=== PATIENT | female | born 1955 | race Caucasian/White ===

== ENCOUNTER 2016-04-26 17:55 | Emergency (ER) | payer MEDICAID ==
[~2016-04-26] VITALS: Ht 147.3 cm; Wt 92.5 kg
[2016-04-26 18:11] VITALS: BP 124/80
[2016-04-26] MEDS ORDERED: ACETAMINOPHEN EXTRA STRENGTH 500 MG TAB PO ONE (18:20)
--- NOTE | 2016-04-26 18:20 | NUR ---
PATIENT TO ER BED 8.
[2016-04-26] MEDS ORDERED: ACETAMINOPHEN EXTRA STRENGTH 500 MG TAB ONE (18:21)
[2016-04-26] MEDS ORDERED: NACL 0.9% 1,000 ML IV ONE (18:25)
--- NOTE | 2016-04-26 18:29 | NUR ---
Patient being evaluated by physician at bedside.
--- NOTE | 2016-04-26 18:30 | NUR ---
PATIENT BIB FAMILY PRESENTS TO ED WITH C/O FEVER X1 WEEK WITH COUGH; DENIES N/D; SKIN IS PINK/WARM/DRY; AAOX4 WITH EVEN AND STEADY GAIT; LUNGS CLEAR BL; HR EVEN AND REGULAR; PT DENIES ANY FEVER, CP, SOB, OR COUGH AT THIS TIME; PATIENT STATES PAIN OF 0/10 AT THIS TIME; VSS; PATIENT POSITIONED FOR COMFORT; HOB ELEVATED; BEDRAILS UP X2; BED DOWN. ER MD MADE AWARE OF PT STATUS.
[2016-04-26] MEDS ORDERED: cefTRIAXone 2,000 MG in DEXTROSE 5% 100 ML IV ONE (18:35)
[2016-04-26] MEDS ORDERED: cefTRIAXone 2,000 MG VIAL ONE (18:45)
--- NOTE | 2016-04-26 19:10 | NUR ---
REPORT RECEIVED FROM FERNY SANTIAGO.
--- NOTE | 2016-04-26 19:25 | NUR ---
REPORT GIVEN TO FERNY ROSENBERG
--- NOTE | 2016-04-26 19:58 | NUR ---
CONCENT SIGNED, PT TRANSFFERED TO CT VIA WHEELCHAIR.
--- NOTE | 2016-04-26 20:07 | NUR ---
PT IS TRANSFFERED BACK FROM CT. CONTINUE TO MONITOR
--- NOTE | 2016-04-26 21:00 | NUR ---
Patient discharged with v/s stable. Written and verbal after care instructions given and explained. Patient alert, oriented and verbalized understanding of instructions. Ambulatory with steady gait. All questions addressed prior to discharge. ID band removed. IV REMOVED. Patient advised to follow up with PMD. Rx of MOTRIN AND CIPRO given. Patient educated on indication of medication including possible reaction and side effects. Opportunity to ask questions provided and answered.
[2016-04-26 21:10] VITALS: BP 106/56
== END 2016-04-26 21:00 | disposition home or self-care (01) ==
LOC: MED 17:55
DX: R50.9 Fever, unspecified (principal); R05 Cough; R11.2 Nausea with vomiting, unspecified; R30.0 Dysuria
CPT/HCPCS: 36415; 71010; 71275; 80053; 81002; 82553; 83605; 83880; 84484; 85025; 85379; 85610; 85730; 87040; 87077; 87186; 93005; 96365; 99285; J0696; J7030; Q0092; Q9967

== ENCOUNTER 2017-03-29 20:45 | Inpatient (IN) | payer SELFPAY ==
[~2017-03-29] VITALS: Ht 152.4 cm; Wt 93.4 kg
[2017-03-29 20:59] VITALS: BP 152/102
[2017-03-29] MEDS ORDERED: LISINOPRIL 10 MG TAB ONE (22:42)
[2017-03-29] MEDS: NACL 0.9% 1,000 ML IV SCH (23:27)
[2017-03-29] MEDS ORDERED: ACETAMINOPHEN 325 MG TAB PO PRN (23:30)
[2017-03-29] MEDS ORDERED: HYDROcodone/APAP 7.5/325 MG 1 TAB PO PRN (23:30)
[2017-03-29] MEDS ORDERED: DOCUSATE SODIUM 100 MG GELCAP PO PRN (23:30)
[2017-03-29] MEDS ORDERED: ONDANSETRON 4 MG/2 ML VIAL IM/IVP PRN (23:30)
[2017-03-29 23:39] LABS: CARBON DIOXIDE 29.3 mmol/L (21-32); CREATININE 0.8 mg/dL (0.6-1.3); POTASSIUM 3.3 mmol/L (3.5-5.1)
[2017-03-29 23:45] LABS: BASOPHILS # (AUTO) 0.5 K/uL (0.00-0.22); BASOPHILS % (AUTO) 4.9 % (0.0-2.0); EOSINOPHILS # (AUTO) 0.4 K/uL (0-0.4); EOSINOPHILS % (AUTO) 4.1 % (0.0-4.0); HEMATOCRIT 45.6 % (36-48); HEMOGLOBIN 15.5 g/dL (12.0-16.0); LYMPHOCYTES # (AUTO) 2.6 K/uL (2.5-16.5); MEAN CORPUSCULAR HEMOGLOBIN 31 pg (27-31); MEAN CORPUSCULAR HGB CONC 34 g/dL (33-37); MEAN CORPUSCULAR VOLUME 90 fL (80-94); MONOCYTES # (AUTO) 0.9 K/uL (0.8-1.0); MONOCYTES % (AUTO) 8.1 % (1.7-9.3); NEUTROPHILS # (AUTO) 6.5 K/uL (1.8-7.7); NEUTROPHILS % (AUTO) 58.9 % (42.2-75.2); PLATELET COUNT (AUTO) 313 K/uL (140-450); RED BLOOD CELL COUNT(AUTO) 5.07 MIL/uL (4.20-5.40); RED CELL DISTRIBUTION WIDTH 12.7 % (11.6-13.7); WHITE BLOOD COUNT (AUTO) 10.9 K/uL (4.8-10.8)
[2017-03-29 23:48] LABS: ALBUMIN 3.6 g/dL (3.4-5.0); TOTAL BILIRUBIN 0.2 mg/dL (0.0-1.0)
[2017-03-30] VITALS (7 sets, daily range): BP systolic 122–176; BP diastolic 82–101
[2017-03-30] MEDS: MORPHINE SULFATE 4 MG/ML SYR IVP PRN ×2 (00:24→09:32)
[2017-03-30 00:27] LABS: CHOL/HDL RATIO 3.4 (1-4.5); FREE T4 (FREE THYROXINE) 0.96 ng/dL (0.76-1.46); MAGNESIUM 1.8 mg/dL (1.8-2.4); PHOSPHORUS 3.6 mg/dL (2.5-4.9); THYROID STIMULATING HORMONE 5.93 uIU/mL (0.34-3.74)
[2017-03-30 01:23] LABS: BARBITURATE, URINE NEG. ng/ml (NEG <=200); BENZODIAZEPINE, URINE NEG. ng/mL (NEG <=200); CANNABINOID, URINE NEG. ng/mL (NEG <=50); COCAINE, URINE NEG. ng/mL (NEG <=300); OPIATE, URINE NEG. ng/mL (NEG <=2000); PHENCYCLIDINE SCREEN,URINE NEG. ng/mL (NEG <=25)
[2017-03-30] MEDS ORDERED: MECLIZINE 25 MG TAB PO PRN (01:35)
[2017-03-30] MEDS ORDERED: LABETALOL 100 MG/20 ML VIAL IV SCH (01:40)
[2017-03-30] MEDS ORDERED: NITROGLYCERIN 0.4 MG TAB SL PRN (01:45)
[2017-03-30] MEDS ORDERED: MORPHINE SULFATE 4 MG/ML SYR IVP PRN (01:45)
[2017-03-30] MEDS ORDERED: LABETALOL 100 MG/20 ML VIAL ONE (02:17)
[2017-03-30] MEDS ORDERED: POTASSIUM CHLORIDE 10 MEQ TABER PO SCH ×2 (02:20→10:10)
[2017-03-30 02:25] LABS: PROTHROMBIN TIME 9.9 secs (10.8-13.4)
[2017-03-30 02:49] LABS: APPEARANCE,URINE CLEAR (CLEAR); BILIRUBIN,URINE NEGATIVE (NEGATIVE); BLOOD, URINE 1+ (NEGATIVE); COLOR,URINE YELLOW (YELLOW); LEUKOCYTE ESTERASE ,URINE NEGATIVE (NEGATIVE); NITRITE, URINE NEGATIVE (NEGATIVE); UGLUCOSE NEGATIVE (NEGATIVE)
[2017-03-30] MEDS ORDERED: INFLUENZA VIRUS VACCINE QUAD 0.5 ML SYR IMVAC PRN (03:00)
[2017-03-30 03:20] LABS: RBC,URINE 0-5 (RARE) /HPF (0-5); WBC,URINE 0-5 (RARE) /HPF (0-5)
[2017-03-30 07:04] LABS: BASOPHILS # (AUTO) 0.4 K/uL (0.00-0.22); BASOPHILS % (AUTO) 3.6 % (0.0-2.0); EOSINOPHILS # (AUTO) 0.4 K/uL (0-0.4); EOSINOPHILS % (AUTO) 3.6 % (0.0-4.0); HEMATOCRIT 42.6 % (36-48); HEMOGLOBIN 14.5 g/dL (12.0-16.0); LYMPHOCYTES # (AUTO) 2.3 K/uL (2.5-16.5); LYMPHOCYTES % (AUTO) 22.4 % (20.5-51.1); MEAN CORPUSCULAR HEMOGLOBIN 31 pg (27-31); MEAN CORPUSCULAR HGB CONC 34 g/dL (33-37); MEAN CORPUSCULAR VOLUME 91 fL (80-94); MONOCYTES # (AUTO) 0.9 K/uL (0.8-1.0); MONOCYTES % (AUTO) 9.1 % (1.7-9.3); NEUTROPHILS # (AUTO) 6.4 K/uL (1.8-7.7); NEUTROPHILS % (AUTO) 61.3 % (42.2-75.2); PLATELET COUNT (AUTO) 305 K/uL (140-450); RED CELL DISTRIBUTION WIDTH 12.4 % (11.6-13.7); WHITE BLOOD COUNT (AUTO) 10.4 K/uL (4.8-10.8)
[2017-03-30 07:11] LABS: ANION GAP 12.2 (8-16); CARBON DIOXIDE 30.1 mmol/L (21-32); CREATININE 0.7 mg/dL (0.6-1.3); POTASSIUM 3.3 mmol/L (3.5-5.1)
[2017-03-30 07:14] LABS: MAGNESIUM 1.7 mg/dL (1.8-2.4); PHOSPHORUS 4.4 mg/dL (2.5-4.9)
[2017-03-30] MEDS ORDERED: LISINOPRIL 20 MG TAB PO SCH ×3 (09:00)
[2017-03-30] MEDS ORDERED: ASPIRIN 81 MG TAB.CHEW PO SCH (09:00)
[2017-03-30] MEDS ORDERED: METOPROLOL SUCCINATE 50 MG TABER PO SCH (09:00)
[2017-03-30] MEDS ORDERED: MAGNESIUM OXIDE 400 MG TAB PO SCH (10:10)
[2017-03-30] MEDS ORDERED: HYDROCHLOROTHIAZIDE 25 MG TAB PO SCH (11:15)
[2017-03-30] MEDS: LISINOPRIL 20 MG TAB PO SCH (20:24)
[2017-03-30] MEDS ORDERED: ATORVASTATIN 20 MG TAB PO SCH (21:00)
[2017-03-30] MEDS: NACL 0.9% 1,000 ML IV SCH (21:13)
[2017-03-31] VITALS: BP 128/75
[2017-03-31] MEDS: NACL 0.9% 1,000 ML IV SCH ×2 (00:24→08:01)
[2017-03-31 04:00] VITALS: BP 116/68
[2017-03-31 06:16] LABS: T4 (THYROXINE) 6.9 ug/dL (4.5-12.0)
[2017-03-31 06:54] LABS: BASOPHILS # (AUTO) 0.4 K/uL (0.00-0.22); BASOPHILS % (AUTO) 3.7 % (0.0-2.0); EOSINOPHILS # (AUTO) 0.3 K/uL (0-0.4); EOSINOPHILS % (AUTO) 3.1 % (0.0-4.0); HEMATOCRIT 42.8 % (36-48); HEMOGLOBIN 14.3 g/dL (12.0-16.0); LYMPHOCYTES # (AUTO) 1.8 K/uL (2.5-16.5); LYMPHOCYTES % (AUTO) 17.3 % (20.5-51.1); MEAN CORPUSCULAR HEMOGLOBIN 30 pg (27-31); MEAN CORPUSCULAR HGB CONC 33 g/dL (33-37); MEAN CORPUSCULAR VOLUME 90 fL (80-94); MONOCYTES # (AUTO) 0.9 K/uL (0.8-1.0); MONOCYTES % (AUTO) 8.2 % (1.7-9.3); NEUTROPHILS # (AUTO) 7.2 K/uL (1.8-7.7); NEUTROPHILS % (AUTO) 67.7 % (42.2-75.2); PLATELET COUNT (AUTO) 293 K/uL (140-450); RED BLOOD CELL COUNT(AUTO) 4.74 MIL/uL (4.20-5.40); RED CELL DISTRIBUTION WIDTH 12.6 % (11.6-13.7); WHITE BLOOD COUNT (AUTO) 10.6 K/uL (4.8-10.8)
[2017-03-31 07:38] LABS: ANION GAP 8.2 (8-16); CARBON DIOXIDE 31.6 mmol/L (21-32); CREATININE 0.7 mg/dL (0.6-1.3); POTASSIUM 3.8 mmol/L (3.5-5.1)
[2017-03-31 07:55] LABS: MAGNESIUM 1.8 mg/dL (1.8-2.4)
[2017-03-31 08:00] VITALS: BP 123/87
[2017-03-31] MEDS ORDERED: METO25TA PO (08:05)
[2017-03-31] MEDS ORDERED: LISI-420 PO (08:05)
[2017-03-31] MEDS ORDERED: ATOR20TA40 PO (08:05)
[2017-03-31] MEDS ORDERED: METOPROLOL 25 MG TAB PO SCH (09:00)
[2017-03-31] MEDS: LISINOPRIL 20 MG TAB PO SCH (09:30)
[2017-03-31] MEDS ORDERED: ACET-2863 PO (10:34)
== END 2017-03-31 11:20 | disposition home or self-care (01) | DRG 205 ==
LOC: MED 20:45 → MTU 23:27
PROVIDERS: ADMIT Family Medicine Sports Medicine; ATTEND Family Medicine Sports Medicine
PROC: 2Y41X5Z Packing of Nasal Region using Packing Material (ICD-10-PCS; 2017-03-29)
PROC: 3E0234Z Introduction of Serum, Toxoid and Vaccine into Muscle, Percutaneous Approach (ICD-10-PCS; principal; 2017-03-31)
DX: M94.0 Chondrocostal junction syndrome [Tietze] (principal); N17.0 Acute kidney failure with tubular necrosis; Z68.41 Body mass index [BMI] 40.0-44.9, adult; R04.0 Epistaxis; I10 Essential (primary) hypertension; E87.6 Hypokalemia; E78.5 Hyperlipidemia, unspecified; E02 Subclinical iodine-deficiency hypothyroidism; E66.01 Morbid (severe) obesity due to excess calories; Z23 Encounter for immunization; Z98.891 History of uterine scar from previous surgery
CPT/HCPCS: 30901; 36415; 70450; 71045; 80048; 80053; 80305; 81001; 82150; 83036; 83690; 83735; 83880; 84100; 84436; 84439; 84443; 84479; 84484; 85025; 85610; 85730; 87081; 90658; 93005; 93880; 93976; 99285; J2270; J3490; J7030; Q0092